=== PATIENT | female | born 1940 | race Hispanic/Latino ===

== ENCOUNTER 2016-11-20 07:52 | Emergency (ER) | payer OTHER ==
[2016-11-20 07:57] VITALS: BP 162/83; TEMP 98.4; O2SAT 98; BMI 31.7
[2016-11-20 08:05] VITALS: PULSE 80; RESP 20
--- NOTE | 2016-11-20 08:18 | ED PDOC ---
Lower Extremity Pain/Injury Time Seen by Provider: 11/20/16 08:05 Chief Complaint (Nursing): Lower Extremity Problem/Injury Chief Complaint (Provider): Lower Extremity Problem/Injury History Per: Patient History/Exam Limitations: no limitations Onset/Duration Of Symptoms: Days (x1 day) Current Symptoms Are (Timing): Still Present Additional Complaint(s): Patient is a 76 y/o female who presents to the emergency department with a complaint of pain to the back of the left knee after hearing a popping sound while walking home yesterday. Pain worsens with bare weight. States she iced her left knee and took an anti-inflammatory pill around 5pm last night without the relief of symptoms. Never experienced similar episode. Denies twist or fall. No direct trauma to the knee. Pt has no pain now--states pain is only there if she stands up and walks on the left leg. Patient's PMD is in [place] (visiting [place] for 1 more week). Past Medical History Reviewed: Historical Data, Nursing Documentation, Vital Signs Vital Signs: Last Vital Signs Temp 98.4 F 11/20/16 07:55 Pulse 80 11/20/16 08:01 Resp 20 11/20/16 08:01 BP 162/83 H 11/20/16 07:55 Pulse Ox 98 11/20/16 08:01 - Medical History PMH: No Chronic Diseases, HTN - Family History Family History: States: Other (Dementia) - Social History Current smoker - smoking cessation education provided: No Alcohol: Social - Allergies Allergies/Adverse Reactions: Allergies Allergy/AdvReac Type Severity Reaction Status Date / Time No Known Allergies Allergy Verified 11/20/16 08:01 Review of Systems ROS Statement: Except As Marked, All Systems Reviewed And Found Negative Constitutional: Negative for: Other (Twist or fall) Musculoskeletal: Positive for: Other (Freeborn a pop of the left knee (pain; cannot bare weight)) Physical Exam - Reviewed Nursing Documentation Reviewed: Yes Vital Signs Reviewed: Yes - Physical Exam Appears: Positive for: Non-toxic, No Acute Distress Head Exam: Positive for: ATRAUMATIC, NORMOCEPHALIC Skin: Positive for: Normal Color, Warm, Dry Neck: Positive for: Normal, Supple Cardiovascular/Chest: Positive for: Regular Rate, Rhythm. Negative for: Murmur Respiratory: Positive for: Normal Breath Sounds. Negative for: Decreased Breath Sounds, Accessory Muscle Use, Respiratory Distress Extremity: Positive for: Normal ROM. Negative for: Other (No instablity, no neurovascular deficits in LLE, no bony tenderness) Neurologic/Psych: Positive for: Alert, Oriented - ECG O2 Sat by Pulse Oximetry: 98 (RA) Pulse Ox Interpretation: Normal Medical Decision Making Medical Decision Making: Time: 8:05 Initial impression: Strain to the left knee Initial plan: --Knee 3 Views LT (RAD) Stat --Revaluation --Knee X-ray was negative and shows no significant abnormalities. Time: 10:02 Upon provider reevaluation patient is feeling better, is medically stable, and requires no further treatment in the ED at this time. Patient will be discharged home. Counseling was provided and all questions were answered regarding diagnosis and need for follow up with Dr. Michelle Johansen MD. There is agreement to discharge plan. Return if symptoms persist or worsen. Will d/c with crutches and NEDRA wrap. Clinical Impression: Knee Strain Scribe Attestation: Documented by Rayne Aburto, acting as a scribe for Terry Shi MD. Provider Scribe Attestation: All medical record entries made by the Scribe were at my direction and personally dictated by me. I have reviewed the chart and agree that the record accurately reflects my personal performance of the history, physical exam, medical decision making, and the department course for this patient. I have also personally directed, reviewed, and agree with the discharge instructions and disposition. Disposition - Clinical Impression Clinical Impression: Knee strain - Patient ED Disposition Is Patient to be Admitted: No Counseled Patient/Family Regarding: Studies Performed, Rx Given - Disposition Referrals: Michelle Johansen MD [Staff Provider] - Disposition: Routine/Home Disposition Time: 10:02 Condition: STABLE Additional Instructions: Ms. Han, thank you for letting us take care of you today. Use the crutches as instructed. Follow up with Dr. Johansen next week. Take Tylenol or Motrin for pain. Return to the ER if your symptoms worsen, or if any new problems. Instructions: Knee Sprain (ED) Print Language: MALAY - POA Present On Arrival: None
--- NOTE | 2016-11-20 12:42 | RAD ---
PROCEDURE: Left Knee Radiographs. HISTORY: Pain. COMPARISON: None. FINDINGS: BONES: Bone alignment and mineralization are normal. There is no acute fracture or bone destruction. JOINTS: Normal. No osteoarthritis. JOINT EFFUSION: None. OTHER FINDINGS: None. IMPRESSION: Normal examination.
== END 2016-11-20 10:32 | disposition home or self-care (01) ==
LOC: H.ER 07:52
DX: S86.912A Strain of unspecified muscle(s) and tendon(s) at lower leg level, left leg, initial encounter (principal); X50.9XXA Other and unspecified overexertion or strenuous movements or postures, initial encounter; Y92.410 Unspecified street and highway as the place of occurrence of the external cause

== ENCOUNTER 2017-08-02 09:16 | Emergency (ER) | payer OTHER ==
[2017-08-02 09:17] VITALS: BMI 31.7
[2017-08-02 09:38] VITALS: BP 147/86; PULSE 96; TEMP 97; O2SAT 98
[2017-08-02 09:49] VITALS: RESP 18
--- NOTE | 2017-08-02 10:47 | ED PDOC ---
Lower Extremity Pain/Injury Time Seen by Provider: 08/02/17 09:44 Chief Complaint (Nursing): Lower Extremity Problem/Injury Chief Complaint (Provider): Left Foot Pain History Per: Patient History/Exam Limitations: no limitations Onset/Duration Of Symptoms: Days (6), Worse Since Current Symptoms Are (Timing): Constant Additional Complaint(s): 77 year old female with a past medical history of hypertension and gout presents ot the ED complaining of constant, throbbing, worsening left foot pain x6 days. The patient states that a few days ago she was out walking when she developed this pain. She reports that she is unable to bear weight on her left foot. As per patient, she took generic antiinflammatories but they offered her no relief. patient has no history of similar symptoms. Denies trauma, injury, recent hospital visit. Past Medical History Reviewed: Historical Data, Nursing Documentation, Vital Signs Vital Signs: Last Vital Signs Temp 97.0 F L 08/02/17 09:47 Pulse 96 H 08/02/17 09:47 Resp 18 08/02/17 09:47 BP 147/86 08/02/17 09:47 Pulse Ox 98 08/02/17 09:47 - Medical History PMH: HTN - Surgical History Other surgeries: Kidney operation - Family History Family History: States: Unknown Family Hx - Immunization History Hx Tetanus Toxoid Vaccination: No Hx Influenza Vaccination: No Hx Pneumococcal Vaccination: No - Home Medications Home Medications: Ambulatory Orders Medication Instructions Recorded Indomethacin [Indocin] 50 mg PO BID #20 cap 08/02/17 - Allergies Allergies/Adverse Reactions: Allergies Allergy/AdvReac Type Severity Reaction Status Date / Time No Known Allergies Allergy Verified 08/02/17 09:47 Review of Systems ROS Statement: Except As Marked, All Systems Reviewed And Found Negative Constitutional: Negative for: Fever, Chills Musculoskeletal: Positive for: Foot Pain (left foot pain and swelling) Physical Exam - Reviewed Nursing Documentation Reviewed: Yes Vital Signs Reviewed: Yes - Physical Exam Appears: Positive for: Non-toxic, No Acute Distress Head Exam: Positive for: ATRAUMATIC Skin: Positive for: Normal Color, Warm, Dry. Negative for: Rash Eye Exam: Positive for: Normal appearance, EOMI Cardiovascular/Chest: Positive for: Regular Rate, Rhythm Respiratory: Negative for: Respiratory Distress Extremity: Positive for: Normal ROM (left dorsum lateral base of 5th metatarsal bone significant for redness; mildly tender) Neurologic/Psych: Positive for: Alert, Oriented - Laboratory Results Result Diagrams: 08/02/17 10:55 08/02/17 10:55 - ECG O2 Sat by Pulse Oximetry: 98 (RA) Pulse Ox Interpretation: Normal Medical Decision Making Medical Decision Makin Initial Impression 77 y/o female presenting wit foot cellulitis vs gout Initial Plan: * CT chest w/o Contrast * BMP Uric Acid * CBC * Erythrocyte Sedimentary Rate * RAD Left Foot * Reevaluation 1141 PROCEDURE: Left Foot Radiographs. HISTORY: left foot pain redness no injury COMPARISON: None. FINDINGS: BONES: No fracture. JOINTS: Unremarkable. SOFT TISSUES: Normal. OTHER FINDINGS: Achilles enthesophyte. Small inferior plantar calcaneal spur. IMPRESSION: No demonstrated fracture or dislocation. 1215 Spoke with podiatry resident who will see patient in ED 1400 Seen by floor layer. Patient is stable for discharge. Dx Gout. - Documented by Beba Serrano acting as a scribe for Sherri Porter MD. All medical record entries made by the Scribe were at my direction and personally dictated by me. I have reviewed the chart and agree that the record accurately reflects my personal performance of the history, physical exam, medical decision making, and the department course for this patient. I have also personally directed, reviewed, and agree with the discharge instructions and disposition. Disposition - Clinical Impression Clinical Impression: Gout attack - Patient ED Disposition Is Patient to be Admitted: No Doctor Will See Patient In The: Office Counseled Patient/Family Regarding: Studies Performed, Diagnosis, Need For Followup - Disposition Referrals: Podiatry Clinic [Outside] Disposition: Routine/Home Disposition Time: 14:19 Condition: GOOD Additional Instructions: Take your medications as instructed. Follow up with your PCP in 3 days. Prescriptions: Indomethacin [Indocin] 50 mg PO BID #20 cap Instructions: Gout (ED)
[2017-08-02 11:02] LABS: BASO # 0.1 K/uL (0.0-0.2); BASO % 0.7 % (0.0-2.0); EOS # 0.1 K/uL (0.0-0.7); EOS % 1.1 % (0.0-4.0); HEMATOCRIT 37.5 % (34.0-47.0); LYMPH # 1.5 K/uL (1.0-4.3); LYMPH % 11.7 % (20.0-40.0); MEAN CELL VOLUME 83.4 fl (81.0-99.0); MEAN CORPUSCULAR HEMOGLOBIN 26.5 pg (27.0-31.0); MEAN CORPUSCULAR HGB CONC 31.8 g/dL (33.0-37.0); MEAN PLATELET VOLUME 6.9 fl (7.2-11.7); MONO # 0.9 K/uL (0.0-0.8); MONO % 7.3 % (0.0-10.0); NEUT # 10.1 K/uL (1.8-7.0); NEUT % 79.2 % (50.0-75.0); NRBC % 0.1 % (0.0-0.0); RED CELL DISTRIBUTION WIDTH 18.1 % (11.5-14.5); WHITE BLOOD COUNT 12.8 K/uL (4.8-10.8)
[2017-08-02 11:12] LABS: POTASSIUM 4.6 MMOL/L (3.6-5.0); URIC ACID 9.8 mg/Dl (2.2-7.5)
--- NOTE | 2017-08-02 11:43 | RAD ---
PROCEDURE: Left Foot Radiographs. HISTORY: left foot pain redness no injury COMPARISON: None. FINDINGS: BONES: No fracture. JOINTS: Unremarkable. SOFT TISSUES: Normal. OTHER FINDINGS: Achilles enthesophyte. Small inferior plantar calcaneal spur. IMPRESSION: No demonstrated fracture or dislocation.
--- NOTE | 2017-08-02 13:15 | CP.PCM.CON ---
History of Present Illness - History of Present Illness History of Present Illness: 77 y/o female with PMHx of HTN and gout presents to clinic complaining of pain in her left foot. Patient denies of any recent trauma to her left foot. Patient denies of any twisting or spraining her ankle as well. Patient states that the pain in her left foot started couple of days ago and it progressively got worst overtime. Patient states that her pain was at its worst yesterday and it stayed about the same since then. Patient states that she has had gout in her both big toes previously for which she was prescribed allopurinol and colchicine. Patient states that those medications did not set well with her and ended up having rashes. Patient denies of any new or recent diet change. Patient also states that she is currently taking diuretics for her blood pressure. Patient denies of any recent F/N/V/C/SOB/CP/SOB. Denies of any other pedal complains at this time. PMHx: HTN, gout PSHx: Renal surgery Allergies: Allupurinol, colchicine SHx: denies smoking, occasional EtOH use, denies illicit drug usage Review of Systems - Constitutional Constitutional: As Per HPI Past Patient History - Past Social History Smoking Status: Never Smoked - CARDIAC Hx Hypertension: Yes - PSYCHIATRIC Hx Substance Use: No - ANESTHESIA Hx Anesthesia: No Hx Anesthesia Reactions: No Hx Malignant Hyperthermia: No Meds Allergies/Adverse Reactions: Allergies Allergy/AdvReac Type Severity Reaction Status Date / Time No Known Allergies Allergy Verified 08/02/17 09:47 Physical Exam - Constitutional Appears: Well, Non-toxic, No Acute Distress - Extremities Exam Extremities exam: Negative for: calf tenderness Additional comments: Left LE focused exam: VASC: DP/PT pulses are palpable 2/4, Cap refill time: < 3 sec x 5, Temp gradient : elevated temperature at the level of calc-cuboid, tarso-5th metatarsal joint accompanied by erythema and non-pitting edema DERM: no open lesions, no inter-digital maceration, no clinical suspicion of active infection NEURO: Protective sensation grossly intact ORTHO: pain on palpation at the base of the 5th metatarsal - cuboid joint as well as calc-cuboid joint, mild tenderness on palpation distal to ATFL ligament , no pain during anterior drawer test, no pain during inversion, or eversion of the left foot at the ankle joint, mild tenderness at the level of tarso- metatarsal joint during ROM of the left foot - Neurological Exam Neurological exam: Alert, Oriented x3 - Psychiatric Exam Psychiatric exam: Normal Affect, Normal Mood Results - Vital Signs Recent Vital Signs: Last Vital Signs Temp 97.0 F L 08/02/17 09:47 Pulse 96 H 08/02/17 09:47 Resp 18 08/02/17 09:47 BP 147/86 08/02/17 09:47 Pulse Ox 98 08/02/17 12:38 - Labs Result Diagrams: 08/02/17 10:55 08/02/17 10:55 Labs: Laboratory Results - last 24 hr 08/02/17 08/02/17 10:55 10:55 WBC 12.8 H RBC 4.49 Hgb 11.9 L Hct 37.5 MCV 83.4 MCH 26.5 L MCHC 31.8 L RDW 18.1 H Plt Count 352 MPV 6.9 L Neut % (Auto) 79.2 H Lymph % (Auto) 11.7 L Stephens % (Auto) 7.3 Eos % (Auto) 1.1 Baso % (Auto) 0.7 Neut # 10.1 H Lymph # 1.5 Stephens # 0.9 H Eos # 0.1 Baso # 0.1 ESR 54 H Sodium 141 Potassium 4.6 Chloride 106 Carbon Dioxide 23 Anion Gap 17 BUN 28 H Creatinine 1.2 Est GFR ( Amer) 53 Est GFR (Non-Af Amer) 44 Random Glucose 114 H Uric Acid 9.8 H Calcium 10.0 Assessment & Plan - Assessment and Plan (Free Text) Assessment: 77 y/o female with PMHx of HTN and gout seen with acute gouty attack Plan: Patient seen and evaluated at bedside Patient discussed in details with attending Dr. Osborne Labs, and vitals reviewed - afebrile, WBC @ 12.8, ESR: 54, UA: 9.8 X-rays of the left foot ordered/reviewed: - diffuse enthesopathy noted at the level of posterior and plantar calc, manny sign noted at the base of the 5th metatarsal consistent with chronic gout Patient educated the possible reason for her acute pain Patient educated to take Indometacin 50 mg twice daily NEDRA bandage applied to the left foot and a surgical shoe given to aid in walking Patient educated to follow up with her physician in [place] when she returns home Demonstrated verbal understanding Thank you for the podiatry consult and allowing to take part in patient care - Date & Time Date: 08/02/17 Time: 13:35
== END 2017-08-02 14:46 | disposition home or self-care (01) ==
LOC: H.ER 09:16
DX: M10.9 Gout, unspecified (principal); I10 Essential (primary) hypertension